=== PATIENT | male | born 1980 | race African-American/Black ===

== ENCOUNTER 2016-10-22 11:04 | Emergency (ER) | payer SELFPAY ==
[~2016-10-22] VITALS: Ht 180.3 cm; Wt 64.4 kg
[2016-10-22 12:37] LABS: CALCIUM 8.9 mg/dL (8.5-10.1); CREATININE 1.3 mg/dL (0.7-1.3); GFR 75.2; POTASSIUM 3.9 mmol/L (3.5-5.1)
--- NOTE | 2016-10-22 13:13 | PHYS DOC ---
Past Medical History Past Medical History: No Pertinent History Past Surgical History: No Surgical History Alcohol Use: Heavy Drug Use: Cocaine Adult General Chief Complaint Chief Complaint: ABNORMAL LABS HPI HPI Patient is a 36 year old male who presents with report of elevated creatinine levels on blood work performed for screening prior to participation in a clinical trial. He denies any urinary symptoms, abdominal pain, flank pain, nausea, vomiting, or diarrhea. He has been taking a protein supplement recently. The labs were done as fasting labs. He had not had anything to drink for a number of hours prior to lab draw. He has a family history of hypertension but denies personal or family history of diabetes. He does not have a PCP. Review of Systems Review of Systems Constitutional: Denies fever or chills. [] GI: Denies abdominal pain, nausea, vomiting, bloody stools or diarrhea. [] : Denies dysuria, hematuria or urinary frequency. [] Musculoskeletal: Denies back pain or joint pain. [] All systems reviewed and negative unless otherwise stated in the HPI. Allergies Allergies Allergies Coded Allergies Type Severity Reaction Last Updated Verified No Known Drug Allergies 10/22/16 No Physical Exam Physical Exam Constitutional: Well developed, well nourished, no acute distress, non-toxic appearance. [] HENT: Normocephalic, atraumatic, oropharynx moist. [] Eyes: PERRLA, EOMI, conjunctiva normal, no discharge. [] Neck: Normal range of motion, no tenderness, supple, no stridor. [] Cardiovascular: Heart rate regular rhythm, no murmur. [] Lungs & Thorax: Bilateral breath sounds clear to auscultation without wheezes, rales, or rhonchi. [] Abdomen: Bowel sounds normal, soft, no tenderness, no masses, no pulsatile masses. [] Skin: Warm, dry, no erythema, no rash. [] Back: No midline tenderness, no CVA tenderness. [] Extremities: No tenderness, ROM intact, no edema. Distal pulses equal bilaterally. [] Neurologic: Alert and oriented X 3, normal motor function, normal sensory function, no focal deficits noted. [] Psychologic: Affect normal, judgement normal, mood normal. [] Current Patient Data Vital Signs Vital Signs Date Time Temp Pulse Resp B/P Pulse Ox O2 Delivery O2 Flow Rate FiO2 10/22/16 11:14 96.8 67 16 120/77 100 Room Air 96.8 Lab Values Laboratory Tests Test 10/22/16 11:49 Sodium Level 141mmol/L (136-145) Potassium Level 3.9mmol/L (3.5-5.1) Chloride Level 104mmol/L (98-107) Carbon Dioxide Level 31mmol/L (21-32) Anion Gap 6 (6-14) Blood Urea Nitrogen 13mg/dL (8-26) Creatinine 1.3mg/dL (0.7-1.3) Estimated GFR (Cockcroft-Gault) 75.2 Glucose Level 89mg/dL (70-99) Calcium Level 8.9mg/dL (8.5-10.1) Laboratory Tests 10/22/16 11:49 EKG EKG [] Radiology/Procedures Radiology/Procedures [] Course & Med Decision Making Course & Med Decision Making Pertinent Labs and Imaging studies reviewed. (See chart for details) Patient presents with reported elevated creatinine outside lab. After evaluation in the emergency department today reveals a creatinine of 1.3, which is at the upper limit of normal. He has not had anything to eat or drink today, and may be somewhat dehydrated. The patient is given contact information for primary care doctors for follow-up. Return precautions were discussed. He verbalizes understanding and agrees with plan. Dragon Disclaimer Wolf Disclaimer This electronic medical record was generated, in whole or in part, using a voice recognition dictation system. Departure Departure Impression: Primary Impression: Abnormal laboratory test Disposition: HOME, SELF-CARE Condition: STABLE Referrals: NO PCP (PCP) Patient Instructions: Creatinine, Blood (Serum Creatinine), Kidney Function Tests Additional Instructions: Your kidney function on your labs today was normal. Please follow-up with a primary care doctor for routine laboratory evaluations. Return to the emergency department if you have any new or concerning symptoms. DIANE ORELLANA Oct 22, 2016 13:13
[2016-10-22 13:20] VITALS: BP 131/85
== END 2016-10-22 13:20 | disposition home or self-care (01) ==
LOC: ER 11:04
DX: R74.8 Abnormal levels of other serum enzymes (principal); F14.10 Cocaine abuse, uncomplicated; F10.10 Alcohol abuse, uncomplicated
CPT/HCPCS: 36415; 80048; 99283

== ENCOUNTER 2020-12-18 10:08 | Emergency (ER) | payer SELFPAY ==
[~2020-12-18] VITALS: Ht 177.8 cm; Wt 63.1 kg
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
[2020-12-18] MEDS ORDERED: CYCL10TA2 PO (11:33)
[2020-12-18] MEDS ORDERED: NAPR500T8 PO (11:33)
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
[2020-12-18 11:43] VITALS: BP 116/73
== END 2020-12-18 11:43 | disposition home or self-care (01) ==
LOC: ER 10:08
DX: M54.5 Low back pain (principal); F17.200 Nicotine dependence, unspecified, uncomplicated; F10.20 Alcohol dependence, uncomplicated; Y90.9 Presence of alcohol in blood, level not specified; V73.6XXA Passenger on bus injured in collision with car, pick-up truck or van in traffic accident, initial encounter; Y93.89 Activity, other specified; Y92.89 Other specified places as the place of occurrence of the external cause; Y99.8 Other external cause status
CPT/HCPCS: 72100; 99283

== ENCOUNTER 2021-02-28 01:40 | Emergency (ER) | payer SELFPAY ==
[~2021-02-28] VITALS: Ht 180.3 cm; Wt 63.5 kg
[~2021-02-28 01:40] MED LIST: CYCL10TA2 PO; NAPR500T8 PO
[2021-02-28 03:30] VITALS: BP 136/82
--- NOTE | 2021-02-28 03:34 | PHYS DOC ---
Past Medical History Past Medical History: No Pertinent History Past Surgical History: No Surgical History Smoking Status: Current Every Day Smoker Alcohol Use: Heavy Drug Use: Cocaine General Adult EDM: Chief Complaint: ANIMAL BITE HPI: HPI: 41-year-old male past medical history of tobacco dependence presents the ED with complaint of dog bite to both legs by his neighbors dog, who lives down the street. Patient states it was Rottweiler, is unsure rabies vaccine is up-to-date. Patient is unsure if his tetanus is up-to-date. Pt with NKDA. No underlying bone pain or difficulties ambulating. Review of Systems: Review of Systems: Constitutional: Denies fever or chills. [] Eyes: Denies change in visual acuity. [] HENT: Denies nasal congestion or sore throat. [] Respiratory: Denies cough or shortness of breath. [] Cardiovascular: Denies chest pain or edema. [] GI: Denies nausea, vomiting Musculoskeletal: Denies back pain or joint pain. [] Integument: Denies rash or diaphoresis Neurologic: Denies focal weakness or sensory changes. [] Psychiatric: Denies depression or anxiety. [] Heart Score: C/O Chest Pain: No Risk Factors: Risk Factors: DM, Current or recent (<one month) smoker, HTN, HLP, family history of CAD, obesity. Risk Scores: Score 0 - 3: 2.5% MACE over next 6 weeks - Discharge Home Score 4 - 6: 20.3% MACE over next 6 weeks - Admit for Clinical Observation Score 7 - 10: 72.7% MACE over next 6 weeks - Early Invasive Strategies Allergies: Allergies: Allergies Coded Allergies Type Severity Reaction Last Updated Verified No Known Drug Allergies 10/22/16 No Physical Exam: PE: Constitutional: Well developed, well nourished, no acute distress, non-toxic appearance. HENT: Normocephalic, atraumatic, Eyes: EOMI, conjunctiva normal, no discharge. Neck: Normal range of motion, supple, Cardiovascular: S1/2 present, regular rhythm Lungs & Thorax: Speaking in full sentences, bilateral equal chest rise, no tachypnea or increased work of breathing Skin: Warm, dry, no erythema, no rash. [] Extremities: Equal DP/PT pulses, very small abrasion over left anterior farr with no active bleeding, right anterior farr with laceration that does not appe ar to be deeper than subcutaneous tissue with no wound gaping-no active bleeding or purulent drainage Neurologic: Alert and oriented X 3, normal motor function, normal sensory function, no focal deficits noted. [] Psychologic: Affect normal, judgement normal, mood normal. [] EKG: EKG: [] Radiology/Procedures: Radiology/Procedures: []IMAGING REPORT Signed PATIENT: CELSO BILLINGSLEY LACCOUNT: [id number] : 1980 LOCATION: ER AGE: 41 SEX: M EXAM STATUS: DEP ER ORD. PHYSICIAN: RICH JAY DO REASON: dog bite PROCEDURE: TIBIA FIBULA BILAT EXAM: Bilateral tibia/fibula 2 views. HISTORY: Dog bite. COMPARISON: None. FINDINGS: There is no fracture or radiopaque foreign body. Soft tissue gas is noted along the posterior soft tissues on the left greater than right. The joint spaces and alignment of the knees and ankle are maintained. IMPRESSION: 1. Soft tissue gas along the distal legs. No fracture or radiopaque foreign body. Electronically signed by: Chris Meadows MD (02/28/2021 6:46 AM) [facility] DICTATED and SIGNED BY: PERLA MEADOWS MD DATE: 02/28/21 [id number] 0 Course & Med Decision Making: Course & Med Decision Making Pertinent Labs and Imaging studies reviewed. (See chart for details) Current recommendations support rabies prophylaxis from a bite or salivary exposure of bat or mammalian carnivore, if cannot capture animal, confirm rabies vaccination or observe animal x10 days. That if animal should have rabies and patients' symptoms would present approximately 20-90 days after incident, is highly likely and would be too late for any prevention or treatment. I understand that rabies incidence varies per location but the benefits of rabies prophylaxis outweighs the risks. Patient was educated and informed to return to the ED if he cannot confirm rabies vaccination. X-ray with no cause of fracture. Antibiotics will be prescribed and tetanus updated. Will discharge home with strict ED return precautions were given for rash, worsening pain, purulent drainage or fever. Encouraged urgent outpatient follow-up with PMD for wound check. Life-threatening processes were considered but are low suspicion at this time, given history, physical exam and ED workup. Pt was educated on all prescription medications and adverse effects. All patient's questions were answered and pt was stable at time of discharge. Life/limb-threatening differential includes but is not limited to, infection or rash (including osteomyelitis, necrotizing fasciitis, cellulitis), wound dehiscence, tendon injury, traumatic injury etc I have spoken with the patient and/or caregivers. I explained the patient's condition, diagnoses and treatment plan based on the information available to me at this time. I have answered the patient and/or caregiver's questions and addressed any concerns. The patient and/or caregivers have a good understanding of patient's diagnosis, condition and treatment plan as can be expected at this point. Vital signs have been stable. Patient's condition is stable and appropriate for discharge from the emergency department. Patient will pursue further outpatient evaluation with primary care physician or other designated or consulting physician as outlined in the discharge instructions. The patient and/or caregivers are agreeable to this plan of care and follow-up instructions have been explained in detail. The patient and/or caregivers have received these instructions in written form and have expressed an understanding of the discharge instructions. The patient and/or caregivers are aware that any significant change of condition or worsening of symptoms should prompt immediate return to this or the closest emergency department or call to 911. Wolf Disclaimer: Wolf Disclaimer: This electronic medical record was generated, in whole or in part, using a voice recognition dictation system. Departure Departure Impression: Primary Impression: Dog bite of extremity Additional Impression: Need for Tdap vaccination Disposition: 01 HOME / SELF CARE / HOMELESS Condition: STABLE Referrals: NO PCP (PCP) Follow-up with your primary care physician in 24 to 48 hours OR FOLLOW UP WITH FAMILY MEDICINE: [address], [address] [place] [address] Patient Instructions: Animal Bite, Rabies, VIS, Tetanus, Diphtheria (Td); Tetanus, Diphtheria, Pertussis (Tdap) - CDC Additional Instructions: Current recommendations support rabies prophylaxis from a bite or salivary exposure of bat or mammalian carnivore, if cannot capture animal, confirm rabies vaccination or observe animal x10 days. That if animal should have rabies and patients' symptoms would present approximately 20-90 days after incident, is highly likely and would be too late for any prevention or treatment. I understand that rabies incidence varies per location but the benefits of rabies prophylaxis outweighs the risks. PLEASE RETURN TO ED FOR RABIES TREATMENT IF YOU CANNOT VERIFY ANIMAL HAS BEEN VACCINATED FOR RABIES IMMEDIATELY EMERGENCY DEPARTMENT GENERAL DISCHARGE INSTRUCTIONS Thank you for coming to [facility] Emergency Department (ED) today and trusting us with you care. We trust that you had a positive experience in our Emergency Department. If you wish to speak to the department management, you may call the Director at [phone]. YOUR FOLLOW UP INSTRUCTIONS ARE FOLLOWS: 1. Do you have a private Doctor? If you do not have a private doctor, please ask for a resource list of physicians or clinics that may be able to assist you with follow up care. 2. The Emergency Physicain has interpreted your x-rays. The X-Ray specialist will also review them. If there is a change in the findings, you will be notified in 48 hours when at all possible. 3. A lab test or culture has been done, your results will be reviewed and you will be notified if you need a change in treatment. ADDITIONAL INSTRUCTIONS AND INFORMATION: 1. Your care today has been supervised by a physician who is specially trained in emergency care. Many problems require more than one evaluation for a complete diagnosis and treatment. We recommend that you schedule your follow up appointment as recommended to ensure complete treatment of you illness or injury. If you are unable to obtain follow up care and continue to have a problem, or if your condition worsens, we recommend that you return to the ED. 2. We are not able to safely determine your condition over the phone nor are we able to give sound medical advice over the phone. For these safety reasons, if you call for medical advice we will ask you to come to the ED for further evaluation. 3. If you have any questions regarding these discharge instructions please call the ED at [phone]. SAFETY INFORMATION: In the interest of safety, wellness, and injury prevention; we encourage you to wear your sealbelt, if you smoke; quite smoking, and we encourage family to use a protective helmet for bicycling and other sporting events that present an increased risk for head injury. IF YOUR SYMPTOMS WORSEN OR NEW SYMPTOMS DEVELOP, OR YOU HAVE CONCERNS ABOUT YOUR CONDITION; OR IF YOUR CONDITION WORSENS WHILE YOU ARE WAITING FOR YOUR FOLLOW UP APPOINTMENT; EITHER CONTACT YOUR PRIMARY CARE DOCTOR, THE PHYSICIAN WHOSE NAME AND NUMBER YOU WERE GIVEN, OR RETURN TO THE ED IMMEDIATELY. Scripts Amoxicillin/Potassium Clav (AUGMENTIN 875-125 TABLET) 1 Each Tablet 1 TAB PO Q12HR, #20 TAB Prov: RICH JAY DO 02/28/21 RICH JAY DO Feb 28, 2021 03:34
[2021-02-28] MEDS ORDERED: AMOX1TAB61 PO (05:07)
[2021-02-28] MEDS ORDERED: DIPH,PERTUSS(ACELL),TET VAC/PF 0.5 ML SYRINGE. VAX IM ONE (05:15)
--- NOTE | 2021-02-28 06:48 | RAD ---
EXAM: Bilateral tibia/fibula 2 views. HISTORY: Dog bite. COMPARISON: None. FINDINGS: There is no fracture or radiopaque foreign body. Soft tissue gas is noted along the posteri or soft tissues on the left greater than right. The joint spaces and alignment of the knees and ankle are maintained. IMPRESSION: 1. Soft tissue gas along the distal legs. No fracture or radiopaque foreign body. Electronically signed by: Chris Meadows MD (02/28/2021 6:46 AM) [facility]
== END 2021-02-28 05:41 | disposition home or self-care (01) ==
LOC: ER 01:40
DX: S81.852A Open bite, left lower leg, initial encounter (principal); S81.851A Open bite, right lower leg, initial encounter; F17.200 Nicotine dependence, unspecified, uncomplicated; F10.20 Alcohol dependence, uncomplicated; Y90.9 Presence of alcohol in blood, level not specified; W54.0XXA Bitten by dog, initial encounter; Y93.89 Activity, other specified; Y92.89 Other specified places as the place of occurrence of the external cause; Y99.8 Other external cause status
CPT/HCPCS: 90471; 90715; 73590-50; 99283-25

== ENCOUNTER 2021-05-14 19:24 | Inpatient (IN) | payer SELFPAY ==
[~2021-05-14] VITALS: Ht 172.7 cm; Wt 68.2 kg
[~2021-05-14 19:24] MED LIST changes: +AMOX1TAB61 PO; +CYCL10TA19 PO; -CYCL10TA2 PO
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
[2021-05-14] MEDS ORDERED: DIPH,PERTUSS(ACELL),TET VAC/PF 0.5 ML SYRINGE. VAX IM ONE (20:30)
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
[2021-05-14 20:53] LABS: CALCIUM 8.6 mg/dL (8.5-10.1); GFR 99.2; POTASSIUM 3.7 mmol/L (3.5-5.1)
[2021-05-14] MEDS ORDERED: KETAMINE HCL IN NACL, ISO-OSM 50 MG/5 ML SYRINGE ONE ×2 (21:02→21:36)
[2021-05-14 21:18] LABS: BASO % 0 % (0-3); EOS # 0.1 x10^3/uL (0.0-0.7); EOS % 0 % (0-3); HEMATOCRIT 46.7 % (39.0-53.0); HEMOGLOBIN 15.5 g/dL (13.0-17.5); LYMPH # 0.9 x10^3/uL (1.0-4.8); LYMPH % 6 % (24-48); MEAN CORPUSCULAR HEMOGLOBIN 33 pg (25-35); MEAN CORPUSCULAR HGB CONC 33 g/dL (31-37); MEAN CORPUSCULAR VOLUME 99 fL (79-100); MONO # 0.7 x10^3/uL (0.0-1.1); MONO % 4 % (0-9); NEUT # 14.9 x10^3/uL (1.8-7.7); NEUT % 90 % (31-73); PLATELET COUNT 241 x10^3/uL (140-400); RED BLOOD COUNT 4.73 x10^6/uL (4.30-5.70); RED CELL DISTRIBUTION WIDTH 13.8 % (11.5-14.5); WHITE BLOOD COUNT 16.6 x10^3/uL (4.0-11.0)
[2021-05-14 21:36] LABS: % BANDS 2 % (0-9); % LYMPHS 6 % (24-48); % MONOS 3 % (0-10); % SEGS 89 % (35-66); PLT ESTIMATE ADEQUATE (ADEQUATE)
[2021-05-14] MEDS ORDERED: ONDANSETRON PF 4 MG/2 ML VIAL. IVP PRN (22:15)
[2021-05-14] MEDS ORDERED: MORPHINE SULFATE 4 MG/ML INJ. IVP PRN (22:15)
[2021-05-14] MEDS ORDERED: ACETAMINOPHEN 325 MG TABLET. PO PRN (22:15)
--- NOTE | 2021-05-14 22:16 | RAD ---
AP chest x-ray HISTORY: Chest tube placement for pneumothorax. COMPARISON: CT chest May 14, 2021 FINDINGS: Heart size normal. Mediastinal silhouette is normal. There is a placement of a small calibe r left pleural catheter since the prior exam tip projecting across the upper chest and there has been decompression of the left sided pneumothorax with smaller volume of pleural air there is mild residu al pneumothorax along the lateral upper pleural space remaining. Improved expansion of the left upper lobe. No pulmonary opacities. No pleural effusions. Bones unremarkable. IMPRESSION: Placement of a left pleural catheter with partial decompression of the left pneumothorax which is smaller in size since the prior exam. See above. Electronically signed by: Marvin Tilley MD (05/14/2021 10:13 PM) [facility]
[2021-05-14] MEDS ORDERED: KETAMINE HCL IN NACL, ISO-OSM 50 MG/5 ML SYRINGE IV ONE (22:30)
[2021-05-14] MEDS ORDERED: LIDOCAINE 1% Multi-Dose 20 ML VIAL. ONE (22:34)
[2021-05-14 23:39] VITALS: BP 140/92
[2021-05-15] VITALS (7 sets, daily range): BP systolic 117–146; BP diastolic 60–88
[2021-05-15 07:20] LABS: BASO # 0.1 x10^3/uL (0.0-0.2); BASO % 0 % (0-3); EOS # 0.1 x10^3/uL (0.0-0.7); EOS % 1 % (0-3); LYMPH # 1.8 x10^3/uL (1.0-4.8); LYMPH % 14 % (24-48); MEAN CORPUSCULAR HEMOGLOBIN 33 pg (25-35); MEAN CORPUSCULAR HGB CONC 33 g/dL (31-37); MEAN CORPUSCULAR VOLUME 98 fL (79-100); MONO % 7 % (0-9); NEUT # 10.5 x10^3/uL (1.8-7.7); NEUT % 78 % (31-73); PLATELET COUNT 251 x10^3/uL (140-400); RED BLOOD COUNT 4.59 x10^6/uL (4.30-5.70); RED CELL DISTRIBUTION WIDTH 13.9 % (11.5-14.5); WHITE BLOOD COUNT 13.4 x10^3/uL (4.0-11.0)
[2021-05-15 07:27] LABS: CALCIUM 8.5 mg/dL (8.5-10.1); GFR 99.2; POTASSIUM 3.7 mmol/L (3.5-5.1)
[2021-05-15] MEDS ORDERED: ONDANSETRON PF 4 MG/2 ML VIAL. IVP PRN (09:00)
[2021-05-15] MEDS ORDERED: FLU VACC QUAD 21-22 (6MOS+) PF 0.5 ML SYRINGE. VAX IM ONE (09:00)
[2021-05-15] MEDS ORDERED: oxyCODONE/APAP 5/325 1 TAB TABLET PO PRN ×2 (09:00)
[2021-05-15] MEDS ORDERED: CALCIUM CARBONATE 500 MG TAB.CHEW PO PRN (09:00)
[2021-05-15] MEDS ORDERED: ACETAMINOPHEN 325 MG TABLET. PO PRN (09:00)
[2021-05-15] MEDS ORDERED: ELECTROLYTE (NON-ICU) PROTOCOL. MC PRN (09:00)
[2021-05-15] MEDS: SENNOSIDES/DOCUSATE 8.6/50MG TABLET. PO SCH ×2 (09:00→20:03)
[2021-05-15] MEDS: MULTIVIT INFUSN,ADULT 4,VIT K 10 ML, THIAMINE INJ 100 MG, FOLIC ACID INJ 1 MG in IV NOR... IV SCH (10:27)
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
--- NOTE | 2021-05-15 11:53 | PDOC ---
PULMONARY PROGRESS NOTES DATE: 05/15/21 TIME: 11:50 Vitals Vital Signs Date Time Temp Pulse Resp B/P (MAP) Pulse Ox O2 Delivery O2 Flow Rate FiO2 05/15/21 11:00 98.6 84 20 117/76 (90) 97 Room Air 98.6 05/14/21 21:41 2.0 Labs Laboratory Tests Test 05/14/21 20:30 05/14/21 21:00 05/15/21 05:35 Sodium Level 143 mmol/L (136-145) 138 mmol/L (136-145) Potassium Level 3.7 mmol/L (3.5-5.1) 3.7 mmol/L (3.5-5.1) Chloride Level 105 mmol/L (98-107) 102 mmol/L (98-107) Carbon Dioxide Level 22 mmol/L (21-32) 25 mmol/L (21-32) Anion Gap 16 (6-14) 11 (6-14) Blood Urea Nitrogen 12 mg/dL (8-26) 5 mg/dL (8-26) Creatinine 1.0 mg/dL (0.7-1.3) 1.0 mg/dL (0.7-1.3) Estimated GFR (Cockcroft-Gault) 99.2 99.2 Glucose Level 88 mg/dL (70-99) 116 mg/dL (70-99) Calcium Level 8.6 mg/dL (8.5-10.1) 8.5 mg/dL (8.5-10.1) Ethyl Alcohol Level 209 mg/dL (0-10) White Blood Count 16.6 x10^3/uL (4.0-11.0) 13.4 x10^3/uL (4.0-11.0) Red Blood Count 4.73 x10^6/uL (4.30-5.70) 4.59 x10^6/uL (4.30-5.70) Hemoglobin 15.5 g/dL (13.0-17.5) 15.0 g/dL (13.0-17.5) Hematocrit 46.7 % (39.0-53.0) 45.0 % (39.0-53.0) Mean Corpuscular Volume 99 fL (79-100) 98 fL (79-100) Mean Corpuscular Hemoglobin 33 pg (25-35) 33 pg (25-35) Mean Corpuscular Hemoglobin Concent 33 g/dL (31-37) 33 g/dL (31-37) Red Cell Distribution Width 13.8 % (11.5-14.5) 13.9 % (11.5-14.5) Platelet Count 241 x10^3/uL (140-400) 251 x10^3/uL (140-400) Neutrophils (%) (Auto) 90 % (31-73) 78 % (31-73) Lymphocytes (%) (Auto) 6 % (24-48) 14 % (24-48) Monocytes (%) (Auto) 4 % (0-9) 7 % (0-9) Eosinophils (%) (Auto) 0 % (0-3) 1 % (0-3) Basophils (%) (Auto) 0 % (0-3) 0 % (0-3) Neutrophils # (Auto) 14.9 x10^3/uL (1.8-7.7) 10.5 x10^3/uL (1.8-7.7) Lymphocytes # (Auto) 0.9 x10^3/uL (1.0-4.8) 1.8 x10^3/uL (1.0-4.8) Monocytes # (Auto) 0.7 x10^3/uL (0.0-1.1) 1.0 x10^3/uL (0.0-1.1) Eosinophils # (Auto) 0.1 x10^3/uL (0.0-0.7) 0.1 x10^3/uL (0.0-0.7) Basophils # (Auto) 0.0 x10^3/uL (0.0-0.2) 0.1 x10^3/uL (0.0-0.2) Segmented Neutrophils % 89 % (35-66) Band Neutrophils % 2 % (0-9) Lymphocytes % 6 % (24-48) Monocytes % 3 % (0-10) Platelet Estimate Adequate (ADEQUATE) Laboratory Tests Test 05/14/21 20:30 05/14/21 21:00 05/15/21 05:35 Sodium Level 143 mmol/L (136-145) 138 mmol/L (136-145) Potassium Level 3.7 mmol/L (3.5-5.1) 3.7 mmol/L (3.5-5.1) Chloride Level 105 mmol/L (98-107) 102 mmol/L (98-107) Carbon Dioxide Level 22 mmol/L (21-32) 25 mmol/L (21-32) Anion Gap 16 (6-14) 11 (6-14) Blood Urea Nitrogen 12 mg/dL (8-26) 5 mg/dL (8-26) Creatinine 1.0 mg/dL (0.7-1.3) 1.0 mg/dL (0.7-1.3) Estimated GFR (Cockcroft-Gault) 99.2 99.2 Glucose Level 88 mg/dL (70-99) 116 mg/dL (70-99) Calcium Level 8.6 mg/dL (8.5-10.1) 8.5 mg/dL (8.5-10.1) Ethyl Alcohol Level 209 mg/dL (0-10) White Blood Count 16.6 x10^3/uL (4.0-11.0) 13.4 x10^3/uL (4.0-11.0) Red Blood Count 4.73 x10^6/uL (4.30-5.70) 4.59 x10^6/uL (4.30-5.70) Hemoglobin 15.5 g/dL (13.0-17.5) 15.0 g/dL (13.0-17.5) Hematocrit 46.7 % (39.0-53.0) 45.0 % (39.0-53.0) Mean Corpuscular Volume 99 fL (79-100) 98 fL (79-100) Mean Corpuscular Hemoglobin 33 pg (25-35) 33 pg (25-35) Mean Corpuscular Hemoglobin Concent 33 g/dL (31-37) 33 g/dL (31-37) Red Cell Distribution Width 13.8 % (11.5-14.5) 13.9 % (11.5-14.5) Platelet Count 241 x10^3/uL (140-400) 251 x10^3/uL (140-400) Neutrophils (%) (Auto) 90 % (31-73) 78 % (31-73) Lymphocytes (%) (Auto) 6 % (24-48) 14 % (24-48) Monocytes (%) (Auto) 4 % (0-9) 7 % (0-9) Eosinophils (%) (Auto) 0 % (0-3) 1 % (0-3) Basophils (%) (Auto) 0 % (0-3) 0 % (0-3) Neutrophils # (Auto) 14.9 x10^3/uL (1.8-7.7) 10.5 x10^3/uL (1.8-7.7) Lymphocytes # (Auto) 0.9 x10^3/uL (1.0-4.8) 1.8 x10^3/uL (1.0-4.8) Monocytes # (Auto) 0.7 x10^3/uL (0.0-1.1) 1.0 x10^3/uL (0.0-1.1) Eosinophils # (Auto) 0.1 x10^3/uL (0.0-0.7) 0.1 x10^3/uL (0.0-0.7) Basophils # (Auto) 0.0 x10^3/uL (0.0-0.2) 0.1 x10^3/uL (0.0-0.2) Segmented Neutrophils % 89 % (35-66) Band Neutrophils % 2 % (0-9) Lymphocytes % 6 % (24-48) Monocytes % 3 % (0-10) Platelet Estimate Adequate (ADEQUATE) Medications Active Scripts Medications Dose Route/Sig Max Daily Dose Days Date Category No Known Medications Prior To Admisstion (Info) Each 1 Each 10/15/13 Reported Impression . Full consult dictated Discussed with IR Replace chest tube MYRON BENEDICT MD May 15, 2021 11:53
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
[2021-05-15] MEDS ORDERED: NALOXONE 0.4 MG/ML VIAL. ONE (12:50)
[2021-05-15] MEDS ORDERED: fentaNYL PF VIAL 100 MCG/2 ML VIAL ONE (12:50)
[2021-05-15] MEDS ORDERED: FLUMAZENIL 0.5 MG/5 ML VIAL. IV ONE (12:50)
[2021-05-15] MEDS ORDERED: MIDAZOLAM HCL/PF 2 MG/2 ML VIAL. ONE (12:50)
--- NOTE | 2021-05-15 13:19 | NUR ---
Upon imaging, decision made by MD to not place chest tube. RN called Brandy QUINTANILLA on [address] and notified. No sedation given. See imaging.
--- NOTE | 2021-05-15 15:15 | RAD ---
CT of the chest without contrast. 05/15/2021 discussion/impression Limited CT imaging of the chest was performed without contrast. For purposes of possible chest tube p lacement. Only minimal residual pneumothorax is identified. A left-sided small caliber thoracostomy t ube is in place. Minimal atelectasis is seen posteriorly. No new chest tube was placed. CT DOSING PQRS STATEMENT: One or more of the following individualized dose reduction techniques were utilized for this examinat ion: 1. Automated exposure control 2. Adjustment of the mA and/or kV according to patient size 3. Use of iterative reconstruction technique Electronically signed by: Singh Hsu MD (05/15/2021 3:13 PM) [id number]
--- NOTE | 2021-05-15 19:07 | NUR ---
Pt transferred to room 565 by bed. Transfer/shift report given to constanza Verma RN.
[2021-05-16 03:04] VITALS: BP 132/85
[2021-05-16 07:00] VITALS: BP 131/85
--- NOTE | 2021-05-16 08:20 | RAD ---
XR CHEST 1V INDICATION: eval chest tube pneumothorax / Spl. Instructions: / History: . COMPARISON STUDY: 05/14/2021. FINDINGS: Life Support Devices: Repositioned left pleural catheter overlying the left lateral hemithorax. Lungs: Normal lung volume. No focal airspace disease. Normal pulmonary vasculature. Pleura: No pleural effusion or pneumothorax. Heart and Mediastinum: Stable cardiomediastinal silhouette and great vessels. IMPRESSION: Repositioned left pleural catheter overlying the left lateral hemithorax. No pneumothorax. No consoli dation. Electronically signed by: Melquiades Alejandra MD (05/16/2021 8:18 AM) [facility]
--- NOTE | 2021-05-16 08:37 | PDOC ---
SURGICAL PROGRESS NOTE DATE: 05/16/21 TIME: 08:35 Subjective doing ok no SOA Vital Signs Vital Signs Date Time Temp Pulse Resp B/P (MAP) Pulse Ox O2 Delivery O2 Flow Rate FiO2 05/16/21 03:04 97.5 75 18 132/85 (101) 94 Room Air 97.5 I&O Intake and Output 05/16/21 07:00 Intake Total 1056.21 ml Output Total 600 ml Balance 456.21 ml Intake Oral 480 ml IV Total 576.21 ml Output Urine Total 600 ml Chest Tube Drainage Total 0 ml General: Alert, Cooperative Lungs: Other (chest tube in place) Abdomen: Soft Labs Laboratory Tests Test 05/14/21 20:30 05/14/21 21:00 05/15/21 05:35 Sodium Level 143 mmol/L (136-145) 138 mmol/L (136-145) Potassium Level 3.7 mmol/L (3.5-5.1) 3.7 mmol/L (3.5-5.1) Chloride Level 105 mmol/L (98-107) 102 mmol/L (98-107) Carbon Dioxide Level 22 mmol/L (21-32) 25 mmol/L (21-32) Anion Gap 16 (6-14) 11 (6-14) Blood Urea Nitrogen 12 mg/dL (8-26) 5 mg/dL (8-26) Creatinine 1.0 mg/dL (0.7-1.3) 1.0 mg/dL (0.7-1.3) Estimated GFR (Cockcroft-Gault) 99.2 99.2 Glucose Level 88 mg/dL (70-99) 116 mg/dL (70-99) Calcium Level 8.6 mg/dL (8.5-10.1) 8.5 mg/dL (8.5-10.1) Ethyl Alcohol Level 209 mg/dL (0-10) White Blood Count 16.6 x10^3/uL (4.0-11.0) 13.4 x10^3/uL (4.0-11.0) Red Blood Count 4.73 x10^6/uL (4.30-5.70) 4.59 x10^6/uL (4.30-5.70) Hemoglobin 15.5 g/dL (13.0-17.5) 15.0 g/dL (13.0-17.5) Hematocrit 46.7 % (39.0-53.0) 45.0 % (39.0-53.0) Mean Corpuscular Volume 99 fL (79-100) 98 fL (79-100) Mean Corpuscular Hemoglobin 33 pg (25-35) 33 pg (25-35) Mean Corpuscular Hemoglobin Concent 33 g/dL (31-37) 33 g/dL (31-37) Red Cell Distribution Width 13.8 % (11.5-14.5) 13.9 % (11.5-14.5) Platelet Count 241 x10^3/uL (140-400) 251 x10^3/uL (140-400) Neutrophils (%) (Auto) 90 % (31-73) 78 % (31-73) Lymphocytes (%) (Auto) 6 % (24-48) 14 % (24-48) Monocytes (%) (Auto) 4 % (0-9) 7 % (0-9) Eosinophils (%) (Auto) 0 % (0-3) 1 % (0-3) Basophils (%) (Auto) 0 % (0-3) 0 % (0-3) Neutrophils # (Auto) 14.9 x10^3/uL (1.8-7.7) 10.5 x10^3/uL (1.8-7.7) Lymphocytes # (Auto) 0.9 x10^3/uL (1.0-4.8) 1.8 x10^3/uL (1.0-4.8) Monocytes # (Auto) 0.7 x10^3/uL (0.0-1.1) 1.0 x10^3/uL (0.0-1.1) Eosinophils # (Auto) 0.1 x10^3/uL (0.0-0.7) 0.1 x10^3/uL (0.0-0.7) Basophils # (Auto) 0.0 x10^3/uL (0.0-0.2) 0.1 x10^3/uL (0.0-0.2) Segmented Neutrophils % 89 % (35-66) Band Neutrophils % 2 % (0-9) Lymphocytes % 6 % (24-48) Monocytes % 3 % (0-10) Platelet Estimate Adequate (ADEQUATE) Problem List Problems Medical Problems: (1) Pneumothorax, left Status: Acute Assessment/Plan no pneumo on cxr pulm following Justicifation of Admission Dx: Justifications for Admission: Justification of Admission Dx: Yes Comments: pneumothorax WOODY [employer] May 16, 2021 08:37
[2021-05-16] MEDS: MULTIVIT INFUSN,ADULT 4,VIT K 10 ML, THIAMINE INJ 100 MG, FOLIC ACID INJ 1 MG in IV NOR... IV SCH (09:00)
[2021-05-16] MEDS ORDERED: POLYETHYLENE GLYCOL 3350 17 GM PACKET. PO PRN (10:45)
[2021-05-16] MEDS: SENNOSIDES/DOCUSATE 8.6/50MG TABLET. PO SCH ×2 (10:49→21:45)
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
[2021-05-16 11:00] VITALS: BP 121/82
[2021-05-16 15:00] VITALS: BP 145/86
--- NOTE | 2021-05-16 17:33 | PDOC ---
PULMONARY PROGRESS NOTES DATE: 05/16/21 TIME: 17:32 Subjective Patient with continued chest discomfort Vitals Vital Signs Date Time Temp Pulse Resp B/P (MAP) Pulse Ox O2 Delivery O2 Flow Rate FiO2 05/16/21 11:00 98.8 82 20 121/82 (95) 96 Room Air 98.8 05/16/21 08:09 2.0 ROS: No Nausea, No Chest Pain, No Abdominal Pain, No Increase Cough Lungs: Clear Cardiovascular: S1, S2 Abdomen: Soft Neuro Exam: Alert Extremities: No Edema Skin: Warm Labs Laboratory Tests Test 05/14/21 20:30 05/14/21 21:00 05/15/21 05:35 Sodium Level 143 mmol/L (136-145) 138 mmol/L (136-145) Potassium Level 3.7 mmol/L (3.5-5.1) 3.7 mmol/L (3.5-5.1) Chloride Level 105 mmol/L (98-107) 102 mmol/L (98-107) Carbon Dioxide Level 22 mmol/L (21-32) 25 mmol/L (21-32) Anion Gap 16 (6-14) 11 (6-14) Blood Urea Nitrogen 12 mg/dL (8-26) 5 mg/dL (8-26) Creatinine 1.0 mg/dL (0.7-1.3) 1.0 mg/dL (0.7-1.3) Estimated GFR (Cockcroft-Gault) 99.2 99.2 Glucose Level 88 mg/dL (70-99) 116 mg/dL (70-99) Calcium Level 8.6 mg/dL (8.5-10.1) 8.5 mg/dL (8.5-10.1) Ethyl Alcohol Level 209 mg/dL (0-10) White Blood Count 16.6 x10^3/uL (4.0-11.0) 13.4 x10^3/uL (4.0-11.0) Red Blood Count 4.73 x10^6/uL (4.30-5.70) 4.59 x10^6/uL (4.30-5.70) Hemoglobin 15.5 g/dL (13.0-17.5) 15.0 g/dL (13.0-17.5) Hematocrit 46.7 % (39.0-53.0) 45.0 % (39.0-53.0) Mean Corpuscular Volume 99 fL (79-100) 98 fL (79-100) Mean Corpuscular Hemoglobin 33 pg (25-35) 33 pg (25-35) Mean Corpuscular Hemoglobin Concent 33 g/dL (31-37) 33 g/dL (31-37) Red Cell Distribution Width 13.8 % (11.5-14.5) 13.9 % (11.5-14.5) Platelet Count 241 x10^3/uL (140-400) 251 x10^3/uL (140-400) Neutrophils (%) (Auto) 90 % (31-73) 78 % (31-73) Lymphocytes (%) (Auto) 6 % (24-48) 14 % (24-48) Monocytes (%) (Auto) 4 % (0-9) 7 % (0-9) Eosinophils (%) (Auto) 0 % (0-3) 1 % (0-3) Basophils (%) (Auto) 0 % (0-3) 0 % (0-3) Neutrophils # (Auto) 14.9 x10^3/uL (1.8-7.7) 10.5 x10^3/uL (1.8-7.7) Lymphocytes # (Auto) 0.9 x10^3/uL (1.0-4.8) 1.8 x10^3/uL (1.0-4.8) Monocytes # (Auto) 0.7 x10^3/uL (0.0-1.1) 1.0 x10^3/uL (0.0-1.1) Eosinophils # (Auto) 0.1 x10^3/uL (0.0-0.7) 0.1 x10^3/uL (0.0-0.7) Basophils # (Auto) 0.0 x10^3/uL (0.0-0.2) 0.1 x10^3/uL (0.0-0.2) Segmented Neutrophils % 89 % (35-66) Band Neutrophils % 2 % (0-9) Lymphocytes % 6 % (24-48) Monocytes % 3 % (0-10) Platelet Estimate Adequate (ADEQUATE) Medications Active Scripts Medications Dose Route/Sig Max Daily Dose Days Date Category No Known Medications Prior To Admisstion (Info) Each 1 Each 10/15/13 Reported Impression . IMPRESSION: 1. Traumatic pneumothorax. 2. Third rib fracture on the left. 3. Alcohol intoxication. Plan . Chest x-ray reviewed no pneumo We will clamp tube repeat x-ray in the a.m. MYRON BENEDICT MD May 16, 2021 17:33
[2021-05-16 19:00] VITALS: BP 148/93
[2021-05-16 23:02] VITALS: BP 132/85
--- NOTE | 2021-05-17 02:20 | NUR ---
Pt put carton forming machine adjuster light wanting the temp turned up - when Josey, RN entered room noted that CT was on floor. Josey informed this RN and RN went to room to assess situation. CT on floor - pt denied SOB or dyspnea. Dr Bell pagevalentin at 0230. Will continue to monitor pt status closely.
[2021-05-17 03:12] VITALS: BP 133/81
[2021-05-17 07:00] VITALS: BP 146/83
--- NOTE | 2021-05-17 08:56 | RAD ---
XR CHEST 1V CLINICAL INDICATIONS: Pneumothorax. Follow-up study. COMPARISON: May 16, 2021. FINDINGS/ IMPRESSION: Previously seen left-sided chest tube has been removed. No pneumothorax size and mediasti num are unremarkable. Small 4 mm lateral left midlung zone lung nodule is seen. This corresponds to a small cavitary lung nodule or lung infiltrate seen on the chest CT dated May 14, 2021. This is s maller in comparison to the previous chest CT. It measured about 12 mm on the chest CT. Electronically signed by: Martin Billy MD (05/17/2021 8:54 AM) [id number]
[2021-05-17] MEDS: MULTIVIT INFUSN,ADULT 4,VIT K 10 ML, THIAMINE INJ 100 MG, FOLIC ACID INJ 1 MG in IV NOR... IV SCH (09:00)
[2021-05-17] MEDS: SENNOSIDES/DOCUSATE 8.6/50MG TABLET. PO SCH (09:00)
[2021-05-17] MEDS ORDERED: OXYC1TAB15 PO (10:46)
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
--- NOTE | 2021-05-17 14:00 | NUR ---
pt was discharged home today with self care. was given instructions on his chest tube incision bandage, was also told that there was oxycodone at the [facility] to apple picker for pain. he was picked up by his mother at 1217 today. Guillermo Steele RN
[2021-05-20] MEDS ORDERED: THIAMINE 100 MG TABLET. PO SCH (09:00)
[2021-05-20] MEDS ORDERED: MULTIVITAMIN with MINERAL TABLET. PO SCH (09:00)
[2021-05-20] MEDS ORDERED: FOLIC ACID 1 MG TABLET. PO SCH (09:00)
== END 2021-05-17 12:17 | disposition home or self-care (01) | DRG 200 ==
LOC: ER 19:24 → 5 NORTH 20:54 → 5 SOUTH 05-15 19:20
PROVIDERS: ADMIT Internal Medicine; ATTEND Internal Medicine
PROC: 0HQ1XZZ Repair Face Skin, External Approach (ICD-10-PCS; principal; 2021-05-14)
PROC: 0W9B30Z Drainage of Left Pleural Cavity with Drainage Device, Percutaneous Approach (ICD-10-PCS; 2021-05-14)
DX: S27.0XXA Traumatic pneumothorax, initial encounter (principal); S22.32XA Fracture of one rib, left side, initial encounter for closed fracture; S21.112A Laceration without foreign body of left front wall of thorax without penetration into thoracic cavity, initial encounter; F10.129 Alcohol abuse with intoxication, unspecified; F14.90 Cocaine use, unspecified, uncomplicated; F17.200 Nicotine dependence, unspecified, uncomplicated; X99.1XXA Assault by knife, initial encounter; Y93.89 Activity, other specified; Y92.89 Other specified places as the place of occurrence of the external cause; Y99.8 Other external cause status
CPT/HCPCS: 32551; 36415; 71045; 71250; 80048; 85007; 85025; 90471; 90686; 90715; 96374; 96375; G0480; J0690; J2060; J2270; J3411; J3490; J7030; 99285-25; G0378

== ENCOUNTER 2021-06-25 10:14 | Emergency (ER) | payer SELFPAY ==
[~2021-06-25] VITALS: Ht 175.3 cm; Wt 60.0 kg
[~2021-06-25 10:14] MED LIST changes: +OXYC1TAB15 PO
[2021-06-25] MEDS ORDERED: LIDOCAINE 1% Multi-Dose 20 ML VIAL. INJ ONE (11:15)
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
[2021-06-25] MEDS ORDERED: SULF1TAB24 PO (11:52)
[2021-06-25 12:27] VITALS: BP 142/87
== END 2021-06-25 12:33 | disposition home or self-care (01) ==
LOC: ER 10:14
DX: L02.412 Cutaneous abscess of left axilla (principal); F17.200 Nicotine dependence, unspecified, uncomplicated
CPT/HCPCS: 10060; 99283

== ENCOUNTER 2021-06-29 11:15 | Emergency (ER) | payer SELFPAY ==
[~2021-06-29] VITALS: Ht 175.3 cm; Wt 60.6 kg
[~2021-06-29 11:15] MED LIST changes: +SULF1TAB24 PO
[2021-06-29 13:28] VITALS: BP 127/80
[2021-06-29] MEDS ORDERED: AMOX1TAB61 PO (14:02)
[2021-06-29] MEDS ORDERED: ONDA4TAB12 PO (14:02)
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
== END 2021-06-29 14:07 | disposition home or self-care (01) ==
LOC: ER 11:15
DX: S01.402A Unspecified open wound of left cheek and temporomandibular area, initial encounter (principal); T36.8X5A Adverse effect of other systemic antibiotics, initial encounter; R11.11 Vomiting without nausea; F10.20 Alcohol dependence, uncomplicated; Y90.9 Presence of alcohol in blood, level not specified; F17.200 Nicotine dependence, unspecified, uncomplicated; Y92.89 Other specified places as the place of occurrence of the external cause
CPT/HCPCS: 99283

== ENCOUNTER 2021-07-10 22:19 | Emergency (ER) | payer SELFPAY ==
[~2021-07-10] VITALS: Ht 175.3 cm; Wt 60.0 kg
[~2021-07-10 22:19] MED LIST changes: +ONDA4TAB12 PO
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
[2021-07-10 22:50] VITALS: BP 114/67
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
== END 2021-07-11 00:03 | disposition home or self-care (01) ==
LOC: ER 22:19 → EEVIPCON 22:19 → ER 07-11 00:03
DX: S00.03XA Contusion of scalp, initial encounter (principal); M25.561 Pain in right knee; F17.200 Nicotine dependence, unspecified, uncomplicated; F10.20 Alcohol dependence, uncomplicated; Y90.9 Presence of alcohol in blood, level not specified; Y08.89XA Assault by other specified means, initial encounter; Y93.89 Activity, other specified; Y92.89 Other specified places as the place of occurrence of the external cause; Y99.8 Other external cause status
CPT/HCPCS: 70450; 72125; 99284; A6450